=== PATIENT | female | born 1985 | race Caucasian/White ===

== ENCOUNTER 2016-06-24 21:06 | Outpatient (CLI) | payer OTHER ==
[~2016-06-24] VITALS: Ht 160 cm; Wt 91.1 kg
[~2016-06-24 21:06] MED LIST: NITR-58 PO; PREN1TAB62 PO
[2016-06-24 21:20] VITALS: Ht 160 cm; Wt 91.1 kg
[2016-06-24] MEDS ORDERED: LACTATED RINGER'S 1,000 ML IV SCH (21:37)
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
--- NOTE | 2016-06-24 22:00 | PN ---
Date/Time of Note Date/Time of Note DATE: 06/24/16 TIME: 21:55 OB Subjective Subjective Subjective 30 yo @ 33 wks 2 days w twin gestation, presents w ctx since yesterday every 20 min.No VB, no LOF, good FM x 2 patient has a headache and had elevated BP prior to but no elevated BP today OB Objective Objective Objective Abdomen- gravid, n/t FHT- Cat I x 2 Magdalena- irreg ctx Abdomen: WNL Varibility: Moderate Intensity: Mild OB Assessment/Plan Other Assessment: 30 yo P 3 @ 33wk2 days w twin gestation; r/o PTL - will order sono to check cervical length - vaginal exam - IV hydration -tylenol for headache - if ctx stop and cervix not dilated, consider d/c home. BRANDY IRIZARRY MD Jun 24, 2016 22:00
[2016-06-24] MEDS ORDERED: TERBUTALINE 1 MG/ML INJ SC ONE (23:30)
--- NOTE | 2016-06-25 00:06 | RADRPT ---
PROCEDURE: Limited OB ultrasound CLINICAL INDICATION: labor TECHNIQUE: Limited sonographic evaluation of the gravid uterus was performed to assess the cervica l length COMPARISON: 05/24/2016. FINDINGS: Twin live is present. Twin A heart rate is 132 beats per minute with a breech presentatio n to the maternal left. Twin B heart rate is 161 beats per minute with cephalic presentation to the maternal right. Cervix is 4.8 cm in length and a closed. IMPRESSION: Twin live intrauterine with a cervical length of 4.8 cm. RPTAT: HMVK .Edgar Henry MD, Date Time Electronically viewed and signed by .Edgar Henry MD, on 06/25/2016 00:05 .K/
[2016-06-25] MEDS ORDERED: DIPHENHYDRAMINE 50 MG INJ IV ONE (01:00)
--- NOTE | 2016-06-25 02:09 | TRIAGE ---
OB Triage Datetime Report Generated by CPN: 06/25/2016 02:08 Datetime: 06/25/2016 01:36 Pain Assessment Pain Scale: 6 Pain Presence: Intermittent Pain Type: Cramping Pain Location: Abdomen Datetime: 06/25/2016 01:30 Labor Evaluation Frequency: x1 Monitor Mode: External Duration (sec)2399: 90 Quality: Mild Resting Tone [place]: Relaxed Heart Rate FHR Baseline Rate: 140 Monitor Mode: External US Variability: Moderate 6-25 bpm Accelerations: 15X15 Decelerations: None Category: Category I Datetime: 06/25/2016 01:16 Stage of : OB Triage Datetime: 06/25/2016 00:39 Monitor Mode: External US Pain Assessment Pain Scale: 6 Pain Presence: Intermittent Pain Type: Cramping Pain Location: Abdomen Pain Assessment Comments: Pt states her pain is the same and she still feels UC's every 20 minutes . Datetime: 06/25/2016 00:30 Labor Evaluation Frequency: Irregular Monitor Mode: External Quality: Mild Resting Tone [place]: Relaxed Heart Rate FHR Baseline Rate: 140 Monitor Mode: External US Variability: Moderate 6-25 bpm Accelerations: 15X15 Decelerations: None Category: Category I Datetime: 06/24/2016 23:26 Labor Evaluation Frequency: IRREGULAR Monitor Mode: External Duration (sec)2399: 60 Quality: Mild Pattern: Normal: <= 5 Contractions in 10 Minutes Resting Tone [place]: Relaxed Heart Rate FHR Baseline Rate: 145 Monitor Mode: External US FHR Baseline Changes: No Baseline Change Variability: Moderate 6-25 bpm Accelerations: 15X15 Decelerations: None Category: Category I Datetime: 06/24/2016 23:16 Pain Assessment Pain Scale: 6 Pain Presence: Intermittent Pain Type: Cramping Pain Location: Abdomen Datetime: 06/24/2016 23:10 Pain Assessment Pain Scale: 5 Pain Presence: Constant Pain Type: Ache Pain Location: Head Datetime: 06/24/2016 22:30 Labor Evaluation Frequency: IRREGULAR Monitor Mode: External Duration (sec)2399: 30-80 Quality: Mild Pattern: Normal: <= 5 Contractions in 10 Minutes Resting Tone [place]: Relaxed Heart Rate FHR Baseline Rate: 150 Monitor Mode: External US FHR Baseline Changes: No Baseline Change Variability: Moderate 6-25 bpm Accelerations: 15X15 Decelerations: None Category: Category I Datetime: 06/24/2016 21:57 Vaginal Exam Dilatation (cms): 1.0 Effacement (%): 30 Station: -3 Exam By: Francis PUENTE RN Vaginal Bleeding: None Cervix, Consistency: Firm Cervix, Position: Posterior Datetime: 06/24/2016 21:30 Labor Evaluation Frequency: x1 Monitor Mode: External Duration (sec)2399: 100 Pattern: Normal: <= 5 Contractions in 10 Minutes Resting Tone [place]: Relaxed Heart Rate FHR Baseline Rate: 145 Monitor Mode: External US Variability: Moderate 6-25 bpm Accelerations: 15X15 Decelerations: None Category: Category I Datetime: 06/24/2016 21:20 Pain Assessment Pain Scale: 4 Pain Presence: Intermittent Pain Type: Cramping Pain Location: Abdomen Datetime: 06/24/2016 21:16 Stage of : OB Triage Assessment Type: Triage Time of Arrival: 06/24/2016 21:04 EGA: 33.2 Arrived By: Ambulatory Arrived From: Home Chief Complaint: Contractions Movement: Present Contractions: Occasional Time Contractions Began: 06/23/2016 03:00 Contractions: Every 20 minutes Rupture of Membranes: Denies Vaginal Bleeding: None Vaginal Discharge: Denies Recent Sexual Intercouse: Denies Abdominal Trauma: Not Applicable Patient Complaints: Contractions; Other Additional Patient Complaints: Right sided headache and ear pain Initial Plan: CEFM Maternal Assessment Level of Consciousness: Fully Conscious DTR's/Clonus: DTRs 2+; No Clonus Headache: Temporal (Annotations: right side and ear) Blurred Vision: No Respiratory Effort: Unlabored; Regular Rhythm; Equal Expansion Breath Sounds, Left: Clear and Equal Breath Sounds, Right: Clear and Equal Nausea/Vomiting: Denies RUQ Epigastric Pain: Denies Lower Extremities Edema: None Degree: None Upper Extremities Edema: None Degree: None Facial Edema: None Temperature Route: Oral Fall Risk Assessment History of Falling: (0) No Secondary Diagnosis: (0) No Ambulatory Aid: (0) Bedrest/Nurse Assist IV Therapy: (0) No Gait: (0) Normal/Bedrest/Immobile Mental Status: (0) Oriented to Own Ability Fall Score: 0 Fall Risk Score Definition: No Risk: No action required Pain Assessment Pain Scale: 6 Pain Presence: Constant Pain Type: Ache Pain Location: Head; Other (Annotations: Right ear) Datetime: 06/10/2016 18:50 Fall Score: 0 Fall Risk Score Definition: No Risk: No action required Datetime: 06/10/2016 18:49 EGA: 31.2 Datetime: 05/24/2016 20:13 EGA: 28.6 Datetime: 05/24/2016 20:10 Fall Score: 0 Fall Risk Score Definition: No Risk: No action required
[2016-06-26] MEDS ORDERED: IRON18TA PO (03:02)
== END 2016-06-25 01:55 | disposition home or self-care (01) ==
LOC: OBT 21:06 → L-D 21:07 → OBT 06-25 01:55
PROVIDERS: ATTEND Specialist
DX: O62.9 Abnormality of forces of labor, unspecified (principal); R51 Headache; O30.003 Twin pregnancy, unspecified number of placenta and unspecified number of amniotic sacs, third trimester; O60.03 Preterm labor without delivery, third trimester; Z3A.33 33 weeks gestation of pregnancy
CPT/HCPCS: 36415; 76817; 96360; 96361; 96372; J1200; J3105; J7120; Z7500; G0463

== ENCOUNTER 2016-06-25 23:45 | Inpatient (IN) | payer OTHER ==
[~2016-06-25] VITALS: Ht 160 cm; Wt 90.4 kg
[~2016-06-25 23:45] MED LIST changes: -NITR-58 PO
--- NOTE | 2016-06-26 01:20 | RADRPT ---
PROCEDURE: US OB cervical length. CLINICAL INDICATION: labor TECHNIQUE: Multiple sonographic images of the pelvis were obtained. The images were reviewed on a PACS workstation. COMPARISON: No pertinent prior examinations were submitted for comparison. FINDINGS: The cervix is closed with a length of 4.3 cm. IMPRESSION: Cervical length 4.3 cm. RPTAT: HIKT .Deion Brower MD, MD Date Time Electronically viewed and signed by .Deion Brower MD, on 06/26/2016 01:20 .T/
[2016-06-26] MEDS ORDERED: BETAMET NA PHOS/AC(6 MG/ML) 5ML INJ IM ONE (01:30)
[2016-06-26 02:01] LABS: URINE BLOOD (Dip) POC Negative (NEGATIVE)
[2016-06-26 02:30] LABS: ADD UMIC YES; URINE BILIRUBIN (Dip) NEGATIVE (NEGATIVE); URINE BLOOD (Dip) NEGATIVE (NEGATIVE); URINE COLOR LT. YELLOW (YELLOW); URINE GLUCOSE (Dip) NEGATIVE (NEGATIVE); URINE KETONES (Dip) NEGATIVE (NEGATIVE); URINE LEUKOCYTE ESTERASE (Dip) 1+ (NEGATIVE); URINE NITRITE (Dip) NEGATIVE (NEGATIVE); URINE TOTAL PROTEIN (Dip) NEGATIVE (NEGATIVE); URINE UROBILINOGEN (Dip) 0.2 E.U./dL (0.1-1.0)
[2016-06-26 02:59] VITALS: BP 111/71; PULSE 97; RESP 18; Ht 160 cm; Wt 90.4 kg
[2016-06-26] MEDS ORDERED: IRON18TA PO (03:02)
[2016-06-26 03:10] LABS: BACTERIA,URINE MODERATE; SQUAMOUS EPITHELIAL CELL,UR OCCASIONAL; URINE RBCS 0-2 /HPF (0)
[2016-06-26] MEDS ORDERED: AMPICILLIN 2 GM/NS (PMX) 100 ML IV ONE (03:30)
[2016-06-26] MEDS ORDERED: NIFEdipine 10 MG CAP PO SCH (03:30)
[2016-06-26] MEDS: NIFEdipine 10 MG CAP PO SCH ×3 (04:00→15:30)
[2016-06-26] MEDS: LACTATED RINGER'S 1,000 ML IV SCH ×3 (04:42→22:56)
--- NOTE | 2016-06-26 06:10 | TRIAGE ---
OB Triage Datetime Report Generated by CPN: 06/26/2016 06:10 Datetime: 06/26/2016 05:55 Labor Evaluation Frequency: 4-8 Monitor Mode: External Duration (sec)2399: 40-60 Quality: Mild Pattern: Normal: <= 5 Contractions in 10 Minutes Resting Tone Aneta: Relaxed Heart Rate FHR Baseline Rate: 140 Monitor Mode: External US FHR Baseline Changes: No Baseline Change Variability: Moderate 6-25 bpm Accelerations: 15X15 Decelerations: None Category: Category I Datetime: 06/26/2016 05:00 Labor Evaluation Frequency: 4-8 Monitor Mode: External Duration (sec)2399: 40-60 Quality: Mild Pattern: Normal: <= 5 Contractions in 10 Minutes Resting Tone Aneta: Relaxed Heart Rate FHR Baseline Rate: 140 Monitor Mode: External US FHR Baseline Changes: No Baseline Change Variability: Moderate 6-25 bpm Accelerations: 15X15 Decelerations: None Category: Category I Datetime: 06/26/2016 04:15 Assessment Type: Admission Assessment Vaginal Bleeding: None Maternal Assessment Level of Consciousness: Fully Conscious DTR's/Clonus: DTRs 2+; No Clonus Headache: Denies Blurred Vision: No Respiratory Effort: Unlabored; Regular Rhythm; Equal Expansion Breath Sounds, Left: Clear and Equal Breath Sounds, Right: Clear and Equal Nausea/Vomiting: Denies RUQ Epigastric Pain: Denies Facial Edema: None Fall Risk Assessment History of Falling: (0) No Secondary Diagnosis: (0) No Ambulatory Aid: (0) Bedrest/Nurse Assist IV Therapy: (20) Yes Gait: (0) Normal/Bedrest/Immobile Mental Status: (0) Oriented to Own Ability Fall Score: 20 Fall Risk Score Definition: No Risk: No action required Pain Assessment Pain Scale: 4 Pain Presence: Intermittent Pain Type: Contraction Pain Location: Abdomen Pain Goal: 6 Datetime: 06/26/2016 04:00 Labor Evaluation Frequency: IRREGULAR Monitor Mode: External Duration (sec)2399: 40-60 Quality: Mild Pattern: Normal: <= 5 Contractions in 10 Minutes Resting Tone [place]eta: Relaxed Heart Rate FHR Baseline Rate: 140 Monitor Mode: External US Variability: Moderate 6-25 bpm Accelerations: 15X15 Decelerations: None Category: Category I Datetime: 06/26/2016 03:30 Labor Evaluation Frequency: x7 Monitor Mode: External Duration (sec)2399: 40-90 Quality: Mild Pattern: Normal: <= 5 Contractions in 10 Minutes Resting Tone Aneta: Relaxed Heart Rate FHR Baseline Rate: 145 Monitor Mode: External US Variability: Moderate 6-25 bpm Accelerations: 15X15 Decelerations: None Category: Category I Datetime: 06/26/2016 02:30 Labor Evaluation Frequency: x7 Monitor Mode: External Duration (sec)2399: 40-100 Quality: Mild Pattern: Normal: <= 5 Contractions in 10 Minutes Resting Tone Aneta: Relaxed Heart Rate FHR Baseline Rate: 145 Monitor Mode: External US Variability: Moderate 6-25 bpm Accelerations: 15X15 Decelerations: None Category: Category I Datetime: 06/26/2016 01:30 Labor Evaluation Frequency: x5 Monitor Mode: External Duration (sec)2399: 40-60 Quality: Mild Pattern: Normal: <= 5 Contractions in 10 Minutes Resting Tone Aneta: Relaxed Heart Rate FHR Baseline Rate: 145 Monitor Mode: External US Variability: Moderate 6-25 bpm Accelerations: 15X15 Decelerations: None Category: Category I Datetime: 06/26/2016 00:30 Labor Evaluation Frequency: IRREGULAR Monitor Mode: External Duration (sec)2399: 40 Quality: Mild Pattern: Normal: <= 5 Contractions in 10 Minutes Resting Tone Aneta: Relaxed Contraction Comments: with irritability Heart Rate FHR Baseline Rate: 145 Monitor Mode: External US Variability: Moderate 6-25 bpm Accelerations: 15X15 Decelerations: None Category: Category I Datetime: 06/26/2016 00:10 Time of Arrival: 06/25/2016 23:44 EGA: 33.3 Arrived By: Wheelchair Arrived From: Home Chief Complaint: CONTRACTIONS Movement: Present Contractions: Regular Contractions: Q20MIN Rupture of Membranes: Denies Vaginal Bleeding: None Vaginal Discharge: Denies Recent Sexual Intercouse: Denies Abdominal Trauma: Not Applicable Patient Complaints: Contractions Initial Plan: CEFM, CVL, UA, PO HYDRATION Datetime: 06/26/2016 00:01 Pain Assessment Pain Scale: 6 Pain Presence: Intermittent Pain Type: Cramping Pain Location: Abdomen Datetime: 06/25/2016 23:57 Assessment Type: Triage Maternal Assessment Level of Consciousness: Fully Conscious DTR's/Clonus: DTRs 2+; No Clonus Headache: Denies Blurred Vision: No Respiratory Effort: Unlabored; Regular Rhythm; Equal Expansion Breath Sounds, Left: Clear and Equal Breath Sounds, Right: Clear and Equal Nausea/Vomiting: Denies RUQ Epigastric Pain: Denies Lower Extremities Edema: None Degree: None Upper Extremities Edema: None Degree: None Facial Edema: None Fall Risk Assessment History of Falling: (0) No Secondary Diagnosis: (0) No Ambulatory Aid: (0) Bedrest/Nurse Assist IV Therapy: (0) No Gait: (0) Normal/Bedrest/Immobile Mental Status: (0) Oriented to Own Ability Fall Score: 0 Fall Risk Score Definition: No Risk: No action required Datetime: 06/25/2016 23:56 Monitor Mode: External US Datetime: 06/24/2016 21:16 EGA: 33.2 Fall Score: 0 Fall Risk Score Definition: No Risk: No action required Datetime: 06/10/2016 18:50 Fall Score: 0 Fall Risk Score Definition: No Risk: No action required Datetime: 06/10/2016 18:49 EGA: 31.2 Datetime: 05/24/2016 20:13 EGA: 28.6 Datetime: 05/24/2016 20:10 Fall Score: 0 Fall Risk Score Definition: No Risk: No action required
[2016-06-26] MEDS: AMPICILLIN 1 GM/NS (PMX) 50 ML IV SCH ×4 (08:40→23:07)
[2016-06-26 08:50] LABS: BASOPHILS % 0.4 % (0.0-2.0); EOSINOPHILS # 0.2 10^3/ul (0.0-0.5); EOSINOPHILS % 2.3 % (0.0-7.0); HEMOGLOBIN 13.2 g/dl (12.0-16.0); LYMPHOCYTES # 1.5 10^3/ul (0.8-2.9); LYMPHOCYTES % 14.5 % (15.0-51.0); MEAN CORPUSCULAR HGB CONC 33.9 g/dl (32.0-37.0); MEAN CORPUSCULAR VOLUME 91.3 fl (82.0-101.0); MEAN PLATELET VOLUME 8.3 fl (7.4-10.4); MONOCYTE # 0.6 10^3/ul (0.3-0.9); MONOCYTES % 5.5 % (0.0-11.0); NEUTROPHILS % 77.3 % (39.0-77.0); PLATELET COUNT 159 10^3/UL (140-440); RED BLOOD COUNT 4.27 10^6/ul (4.20-5.40); UNCORRECTED WBC 10.4 10^3/ul (4.8-10.8); WHITE BLOOD COUNT 10.4 10^3/ul (4.8-10.8)
[2016-06-26 08:54] LABS: ALBUMIN 3.1 g/dl (3.3-4.9); POTASSIUM 3.7 mmol/L (3.5-5.1)
[2016-06-26 08:56] LABS: BILIRUBIN,INDIRECT 0.1 mg/dl (0-1.1); BILIRUBIN,TOTAL 0.1 mg/dl (0.2-1.3); CREATININE 0.43 mg/dl (0.44-1.00); PROTIME 13.2 Sec (12.2-14.2)
[2016-06-26 08:57] LABS: CONDITION 1; PARTIAL THROMBOPLASTIN TIME 26.3 Sec (25.0-35.0); TOTAL PROTEIN 6.2 g/dl (6.1-8.1)
[2016-06-26 08:58] LABS: CALCIUM 8.4 mg/dl (8.4-10.2)
--- NOTE | 2016-06-26 09:22 | RADRPT ---
PROCEDURE: Limited OB ultrasound CLINICAL INDICATION: labor. TECHNIQUE: Sonographic evaluation to assess the cervical length was performed. Transabdominal alona ging of the gravid uterus was performed. COMPARISON: OB ultrasound for cervical length performed earlier on the same date FINDINGS: Twin A: The heart rate is 132 bpm. position is cephalic. The placenta is posterior. Twin B: The heart rate is 134 bpm. position is breech. The placenta is posterior. The cervix is closed with a length of 3.8 cm. IMPRESSION: The cervix is closed with a length of 3.8 cm. The cervical length previously measured 4.3 cm. RPTAT: HH .Katiuska Barton MD, MD Date Time Electronically viewed and signed by .Katiuska Barton MD, on 06/26/2016 09:21 .G/
[2016-06-26] MEDS: FERROUS GLUCONATE (EC) 325 MG TAB PO SCH (10:00)
[2016-06-26] MEDS: MULTIVIT/MIN/FOLATE/IRON/PREN TAB PO SCH (10:22)
[2016-06-26] MEDS ORDERED: FERROUS FUMARATE (SR) TAB PO SCH (11:00)
[2016-06-26] MEDS ORDERED: NIFEdipine (XL) 30 MG TAB PO SCH (23:08)
--- NOTE | 2016-06-26 23:17 | HP ---
Date/Time of Note Date/Time of Note DATE: 06/26/16 TIME: 23:10 OB - History Hx of Present Free Text/Dictation c/o UCs Estimated Due Date: Aug 10, 2016 : 4 Para: 3 Care: Good Care Ultrasounds: Normal mid trimester US Obstetrical Complications: Other (Twins Di-Di) Medical Complications: None Past Family/Social History * Past Medical, Surgical, Family and Obstetric Histories reviewed from chart. OB Admission Exam Vital Signs Vital Signs Vital Signs Date Time Temp Pulse Resp B/P Pulse Ox O2 Delivery O2 Flow Rate FiO2 06/26/16 02:59 98.0 97 18 111/71 Room Air Physical Exam HEENT: WNL Heart: Rhythm Normal Lungs: Clear, Equal Abdomen: WNL Extremities: Normal Reflexes: Normal Cervical Dilatation: None Effacement: 0% Station: -3 Membranes: Intact Accelerations: Accelerations Present Last 72 hours Lab Results CBC & BMP 06/26/16 04:15 Liver Function Test 06/26/16 04:15 Alanine Aminotransferase (ALT/SGPT) 23 Albumin 3.1 L Alkaline Phosphatase 141 H Aspartate Amino Transf (AST/SGOT) 21 Direct Bilirubin 0.00 Total Protein 6.2 OB Assessment/Plan Reason for admission: labor, other (Twins Di - Di) Other Assessment: IUP at 33.4 weeks with Twins was admitted for observation because she c/o UCs. FFN was neg and cervix has remained closed despite frequent contractions. patient reports her UCs were 8 ot of 10 today am and at this the contractions are 5 out 10 patient refusing tocolysis. the risks of prematurity d/w pt. patient agreed to Procardia Other plan: obtain perinatology and neonatology consultations Steroids Ampicillin Procardia Xl CANDICE GUTIERREZ MD Jun 26, 2016 23:16
[2016-06-27] MEDS: AMPICILLIN 1 GM/NS (PMX) 50 ML IV SCH ×3 (02:10→08:22)
[2016-06-27] MEDS ORDERED: BETAMET NA PHOS/AC(6 MG/ML) 5ML INJ IM ONE (04:15)
[2016-06-27] MEDS: LACTATED RINGER'S 1,000 ML IV SCH ×4 (07:30→21:18)
[2016-06-27] MEDS: MULTIVIT/MIN/FOLATE/IRON/PREN TAB PO SCH (09:12)
[2016-06-27] MEDS: FERROUS GLUCONATE (EC) 325 MG TAB PO SCH (09:12)
--- NOTE | 2016-06-27 17:22 | PN ---
Date/Time of Note Date/Time of Note DATE: 06/27/16 TIME: 17:01 OB Subjective Subjective Subjective Denies any contractions. Denies any LOF, vaginal bleeding. reports good movements. OB Objective Objective Objective GA: A&O, NAD Abdomen: Soft, non tender. Fundal height : Consistent with GA Extremities: no calf tenderness, no click, no edema CL: 3. 8 cm NST: Cat 1 Occasional rare contractions seen. OB Assessment/Plan Other Assessment: IUP at 33 weeks and 5 /7 Admitted for symptomatic contractions. Cervix long Contractions resolved with PO Nifedipine. Patient has been currently asymptomatic Will Stop ampicillin Expectanet management Consider DC home tomorrow with Nifedipine if remain stable and asymptomatic JOE ESTRADA MD Jun 27, 2016 17:18
[2016-06-27] MEDS: NIFEdipine 10 MG CAP PO SCH (18:09)
[2016-06-28] MEDS: LACTATED RINGER'S 1,000 ML IV SCH (00:04)
[2016-06-28] MEDS: NIFEdipine 10 MG CAP PO SCH ×2 (00:04→05:51)
--- NOTE | 2016-06-28 11:30 | DS ---
DATE OF ADMISSION: 06/26/2016 DATE OF DISCHARGE: 06/28/2016 ADMISSION DIAGNOSIS: at 33 weeks with twin gestation, labor. DISCHARGE DIAGNOSIS: at 33 weeks and 4 days; labor, resolved. HOSPITAL COURSE: The patient was admitted and received steroids. She was treated with Procardia, w hich she initially refused. She was seen by perinatologist and nurse extern. She then agreed to r eceive the Procardia. She stopped theodore and her cervix remained closed and her Fibronect in was negative. She denies loss of fluid per vagina. She denies vaginal bleeding. She denies con tractions at this time. She reports good movement on both babies. DISCHARGE DIET: Regular. CONDITION: Satisfactory. ACTIVITY: pelvic rest. FOLLOWUP: Follow up with Dr. Morris in one day. labor precautions and kick counts discussed with patient. MEDICATIONS: vitamins and iron. Dictated By: CANDICE REINA/ESTRELLITA Conf#: [id number] DID#: [id number]
== END 2016-06-28 08:41 | disposition home or self-care (01) | DRG 778 ==
LOC: OBT 23:45 → L-D 23:45 → OBT 06-26 02:23 → L-D 06-26 02:23 → OBG 06-26 07:06
PROVIDERS: ADMIT Specialist; ATTEND Specialist
DX: O60.03 Preterm labor without delivery, third trimester (principal)
CPT/HCPCS: 76817; 80053; 81001; 81003; 85025; 85610; 85730; 86850; 86870; 86900; 86901; 87081; 87086; G0463; J0290; J0702; J7120

== ENCOUNTER 2016-07-03 19:32 | Outpatient (CLI) | payer OTHER ==
[~2016-07-03] VITALS: Ht 160 cm; Wt 91.1 kg
[~2016-07-03 19:32] MED LIST changes: +IRON18TA PO
[2016-07-03 19:42] VITALS: Ht 160 cm; Wt 91.1 kg
[2016-07-03 19:44] VITALS: BP 106/70; PULSE 99; RESP 18
[2016-07-03] MEDS ORDERED: NIFE60TA7 PO (19:50)
[2016-07-03 21:30] LABS: ADD UMIC YES; URINE BILIRUBIN (Dip) NEGATIVE (NEGATIVE); URINE BLOOD (Dip) NEGATIVE (NEGATIVE); URINE COLOR LT. YELLOW (YELLOW); URINE GLUCOSE (Dip) NEGATIVE (NEGATIVE); URINE KETONES (Dip) NEGATIVE (NEGATIVE); URINE LEUKOCYTE ESTERASE (Dip) 1+ (NEGATIVE); URINE NITRITE (Dip) NEGATIVE (NEGATIVE); URINE TOTAL PROTEIN (Dip) NEGATIVE (NEGATIVE); URINE UROBILINOGEN (Dip) 0.2 E.U./dL (0.1-1.0)
[2016-07-03 21:32] LABS: BASOPHILS % 0.3 % (0.0-2.0); EOSINOPHILS # 0.2 10^3/ul (0.0-0.5); HEMOGLOBIN 13.6 g/dl (12.0-16.0); LYMPHOCYTES # 1.5 10^3/ul (0.8-2.9); LYMPHOCYTES % 15.5 % (15.0-51.0); MEAN CORPUSCULAR HEMOGLOBIN 31.3 pg (29.0-33.0); MEAN CORPUSCULAR HGB CONC 34.9 g/dl (32.0-37.0); MEAN CORPUSCULAR VOLUME 89.8 fl (82.0-101.0); MEAN PLATELET VOLUME 7.5 fl (7.4-10.4); MONOCYTE # 0.6 10^3/ul (0.3-0.9); MONOCYTES % 6.1 % (0.0-11.0); NEUTROPHIL # 7.1 10^3/ul (1.6-7.5); NEUTROPHILS % 76.1 % (39.0-77.0); PLATELET COUNT 169 10^3/UL (140-440); RED BLOOD COUNT 4.34 10^6/ul (4.20-5.40); RED CELL DISTRIBUTION WIDTH 14.2 % (11.5-14.5); UNCORRECTED WBC 9.4 10^3/ul (4.8-10.8); WHITE BLOOD COUNT 9.4 10^3/ul (4.8-10.8)
--- NOTE | 2016-07-03 21:35 | RADRPT ---
PROCEDURE: Limited OB ultrasound CLINICAL INDICATION: . Evaluate fluid volume. Spontaneous rupture of membranes. TECHNIQUE: Sonographic evaluation to assess the amniotic fluid volume was performed. Transabdomin al imaging of the gravid uterus was performed. COMPARISON: OB ultrasound dated 04/11/2015 FINDINGS: Twin A: Breech presentation, normal cardiac motion seen, posterior placenta grade 2, maximum fluid pocket of 3.2 cm. Twin B: Cephalic presentation, normal cardiac motion is seen, posterior placenta grade II, maximum fluid pocket of 3.3 cm. IMPRESSION: 1. Normal amniotic fluid volume. 2. Twin viable intrauterine . RPTAT: PP .Abdiel Lora MD, MD Date Time Electronically viewed and signed by .Abdiel Lora MD, on 07/03/2016 21:34 .B/
[2016-07-03 21:38] LABS: CONDITION 1
[2016-07-03 21:41] LABS: BACTERIA,URINE MANY; SQUAMOUS EPITHELIAL CELL,UR MODERATE; URINE RBCS 0-2 /HPF (0)
--- NOTE | 2016-07-03 22:39 | TRIAGE ---
OB Triage Datetime Report Generated by CPN: 07/03/2016 22:38 Datetime: 07/03/2016 22:00 Stage of : OB Triage Labor Evaluation Frequency: 6-12min Monitor Mode: External Duration (sec)2399: 40-60 Quality: Mild Pattern: Normal: <= 5 Contractions in 10 Minutes Resting [place]: Relaxed Heart Rate FHR Baseline Rate: 135 Monitor Mode: External US FHR Baseline Changes: No Baseline Change Variability: Moderate 6-25 bpm Accelerations: 15X15 Decelerations: None Category: Category I Datetime: 07/03/2016 21:01 Monitor Mode: External Quality: Mild Pattern: Normal: <= 5 Contractions in 10 Minutes [place]ing [place]: Relaxed Heart Rate FHR Baseline Rate: 130 Monitor Mode: External US FHR Baseline Changes: No Baseline Change Variability: Moderate 6-25 bpm Accelerations: 15X15 Decelerations: None Category: Category I Vaginal Exam Dilatation (cms): 0.0 Effacement (%): 0 Station: -3 Exam By: E Ciro Amniotic Fluid Amount: None Vaginal Bleeding: None Pool: Negative Nitrazine: Negative Cervix, Consistency: Moderate Cervix, Position: Posterior Datetime: 07/03/2016 20:25 Stage of : OB Triage Labor Evaluation Frequency: 5-10min Monitor Mode: External Duration (sec)2399: 50-80 Quality: Mild Pattern: Normal: <= 5 Contractions in 10 Minutes [place]ing [place]: Relaxed Heart Rate FHR Baseline Rate: 135 Monitor Mode: External US FHR Baseline Changes: No Baseline Change Variability: Moderate 6-25 bpm Accelerations: 15X15 Decelerations: None Category: Category I Pain Assessment Pain Scale: 4 Pain Presence: Intermittent Pain Type: Cramping Pain Location: Abdomen Pain Assessment Comments: Datetime: 07/03/2016 19:52 Time of Arrival: 07/03/2016 19:27 EGA: 34.4 Arrived By: Ambulatory Arrived From: Home Chief Complaint: w/ twin gestation w/ c/o leaking sm amt fluid x2 since 1700 Movement: Present Contractions: Occasional Rupture of Membranes: Unsure Vaginal Discharge: Present Recent Sexual Intercouse: Denies Abdominal Trauma: Not Applicable Patient Complaints: Cramping Initial Plan: EFM Datetime: 07/03/2016 19:41 Maternal Assessment Level of Consciousness: Fully Conscious Headache: Denies Blurred Vision: No Nausea/Vomiting: Denies RUQ Epigastric Pain: Denies Facial Edema: None Labor Evaluation Frequency: placed Monitor Mode: External [place]: Relaxed Monitor Mode: External US Comments: FHT 150 Pain Assessment Pain Scale: 5 Pain Presence: Intermittent Pain Type: Cramping Pain Location: Abdomen Datetime: 06/28/2016 08:00 Assessment Type: Ongoing Assessment Maternal Assessment Level of Consciousness: Fully Conscious DTR's/Clonus: DTRs 2+; No Clonus Headache: Denies Blurred Vision: No Respiratory Effort: Unlabored; Regular Rhythm; Equal Expansion Breath Sounds, Left: Clear and Equal Breath Sounds, Right: Clear and Equal Nausea/Vomiting: Denies RUQ Epigastric Pain: Denies Facial Edema: None Fall Risk Assessment History of Falling: (0) No Secondary Diagnosis: (0) No Ambulatory Aid: (0) Bedrest/Nurse Assist IV Therapy: (0) No Gait: (0) Normal/Bedrest/Immobile Mental Status: (0) Oriented to Own Ability Fall Score: 0 Fall Risk Score Definition: No Risk: No action required Labor Evaluation Frequency: 0 Monitor Mode: External Duration (sec)2399: 0 Pattern: Normal: <= 5 Contractions in 10 Minutes Contraction Comments: DENIES ANY UC'S. ABDOMEN SOFT TO PALPATION Heart Rate FHR Baseline Rate: 145 FHR Baseline Changes: No Baseline Change Variability: Moderate 6-25 bpm Accelerations: 15X15 Decelerations: None Category: Category I Comments: IV DC'D TO [facility]. BANDAIDE APPLIED, BLEEDING STOPPED. Datetime: 06/28/2016 06:46 Labor Evaluation Frequency: x1 Monitor Mode: External Duration (sec)2399: 110 Quality: Mild [place]: Relaxed Contraction Comments: pt without complaint of uc pain Heart Rate FHR Baseline Rate: 140 Monitor Mode: External US Variability: Moderate 6-25 bpm Accelerations: 10X10 Decelerations: None Category: Category I Datetime: 06/28/2016 06:00 Labor Evaluation Frequency: none Monitor Mode: External [place]: Relaxed Heart Rate FHR Baseline Rate: 140 Monitor Mode: External US Variability: Moderate 6-25 bpm Accelerations: 15X15 Decelerations: None Category: Category I Datetime: 06/28/2016 05:00 Labor Evaluation Frequency: x2 Monitor Mode: External Duration (sec)2399: 40-100 Quality: Mild [place]: Relaxed Heart Rate FHR Baseline Rate: 140 Monitor Mode: External US Variability: Moderate 6-25 bpm Accelerations: 15X15 Decelerations: None Category: Category I Datetime: 06/28/2016 04:00 Labor Evaluation Frequency: 130 Monitor Mode: External [place]: Relaxed Heart Rate FHR Baseline Rate: 140 Monitor Mode: External US Variability: Moderate 6-25 bpm Accelerations: 15X15 Decelerations: Variable Category: Category II Datetime: 06/28/2016 02:53 Labor Evaluation Frequency: x2 Monitor Mode: External Duration (sec)2399: 40-110 [place]: Relaxed Contraction Comments: pt without complaint of uc pain Heart Rate FHR Baseline Rate: 140 Monitor Mode: External US Variability: Moderate 6-25 bpm Accelerations: 15X15 Decelerations: None Category: Category I Datetime: 06/28/2016 02:00 Labor Evaluation Frequency: x3 Monitor Mode: External Duration (sec)2399: 50-120 Quality: Mild [place]: Relaxed Contraction Comments: pt without complaint of uc pain Heart Rate FHR Baseline Rate: 140 Monitor Mode: External US Variability: Moderate 6-25 bpm Accelerations: 15X15 Decelerations: None Category: Category I Datetime: 06/28/2016 01:00 Labor Evaluation Frequency: x4 Monitor Mode: External Duration (sec)2399: 40-90 Quality: Mild [place]: Relaxed Contraction Comments: pt without complaint of uc pain Heart Rate FHR Baseline Rate: 140 Monitor Mode: External US FHR Baseline Changes: No Baseline Change Variability: Moderate 6-25 bpm Accelerations: 15X15 Decelerations: None Category: Category I Datetime: 06/28/2016 00:00 Labor Evaluation Frequency: x4 Monitor Mode: External Duration (sec)2399: 40-110 Quality: Mild [place]: Relaxed Contraction Comments: pt without complaint of uc pain Heart Rate FHR Baseline Rate: 140 Monitor Mode: External US FHR Baseline Changes: No Baseline Change Variability: Moderate 6-25 bpm Accelerations: 15X15 Decelerations: None Category: Category I Datetime: 06/27/2016 23:00 Labor Evaluation Frequency: x1 Monitor Mode: External Duration (sec)2399: 40 Quality: Mild [place]: Relaxed Contraction Comments: pt without complaint of uc pain Heart Rate FHR Baseline Rate: 140 Monitor Mode: External US Variability: Moderate 6-25 bpm Accelerations: 15X15 Decelerations: None Category: Category I Datetime: 06/27/2016 21:00 Labor Evaluation Frequency: none Monitor Mode: External [place]: Relaxed Heart Rate FHR Baseline Rate: 140 Monitor Mode: External US Variability: Moderate 6-25 bpm Accelerations: 15X15 Decelerations: None Category: Category I Datetime: 06/27/2016 20:03 Assessment Type: Ongoing Assessment Maternal Assessment Level of Consciousness: Fully Conscious DTR's/Clonus: DTRs 2+; No Clonus Headache: Denies Blurred Vision: No Respiratory Effort: Unlabored; Regular Rhythm; Equal Expansion Breath Sounds, Left: Clear and Equal Breath Sounds, Right: Clear and Equal Nausea/Vomiting: Denies RUQ Epigastric Pain: Denies Lower Extremities Edema: None Degree: None Upper Extremities Edema: None Degree: None Facial Edema: None Fall Risk Assessment History of Falling: (0) No Secondary Diagnosis: (0) No Ambulatory Aid: (0) Bedrest/Nurse Assist IV Therapy: (20) Yes Gait: (0) Normal/Bedrest/Immobile Mental Status: (0) Oriented to Own Ability Fall Score: 20 Fall Risk Score Definition: No Risk: No action required Datetime: 06/27/2016 20:02 Stage of : Antepartum Temperature Route: Oral Datetime: 06/27/2016 20:01 Comments: EFM adjusted Datetime: 06/27/2016 20:00 Labor Evaluation Frequency: x4 Monitor Mode: External Duration (sec)2399: 40-50 Quality: Mild [place]: Relaxed Contraction Comments: pt without complaint of uc pain Heart Rate FHR Baseline Rate: 140 Monitor Mode: External US Variability: Moderate 6-25 bpm Accelerations: 15X15 Decelerations: None Category: Category I Datetime: 06/27/2016 18:00 Labor Evaluation Frequency: NONE Monitor Mode: External Duration (sec)2399: 0 Pattern: Normal: <= 5 Contractions in 10 Minutes Resting [place]: Relaxed Heart Rate FHR Baseline Rate: 140 Monitor Mode: External US FHR Baseline Changes: No Baseline Change Variability: Moderate 6-25 bpm Accelerations: 15X15 Decelerations: None Category: Category I Datetime: 06/27/2016 17:00 Labor Evaluation Frequency: IRRIT Monitor Mode: External Pattern: Normal: <= 5 Contractions in 10 Minutes Resting [place]: Relaxed Heart Rate FHR Baseline Rate: 130 Monitor Mode: External US FHR Baseline Changes: No Baseline Change Variability: Moderate 6-25 bpm Accelerations: 15X15 Decelerations: None Category: Category I Datetime: 06/27/2016 16:00 Labor Evaluation Frequency: IRRIT Monitor Mode: External Duration (sec)2399: 20 TO 30 SEC Quality: Mild Pattern: Normal: <= 5 Contractions in 10 Minutes Resting [place]: Relaxed Heart Rate FHR Baseline Rate: 140 Monitor Mode: External US FHR Baseline Changes: No Baseline Change Variability: Moderate 6-25 bpm Accelerations: 15X15 Decelerations: None Category: Category I Datetime: 06/27/2016 15:00 Labor Evaluation Frequency: NONE Monitor Mode: External Duration (sec)2399: 0 Pattern: Normal: <= 5 Contractions in 10 Minutes Resting [place]: Relaxed Heart Rate FHR Baseline Rate: 130 Monitor Mode: External US FHR Baseline Changes: No Baseline Change Variability: Moderate 6-25 bpm Accelerations: 15X15 Decelerations: None Category: Category I Datetime: 06/27/2016 14:00 Labor Evaluation Frequency: IRRIT Monitor Mode: External Duration (sec)2399: 10 TO 20 SEC Pattern: Normal: <= 5 Contractions in 10 Minutes Resting [place]: Relaxed Heart Rate FHR Baseline Rate: 130 Monitor Mode: External US FHR Baseline Changes: No Baseline Change Variability: Moderate 6-25 bpm Accelerations: 15X15 Decelerations: None Category: Category I Datetime: 06/27/2016 13:00 Labor Evaluation Frequency: X2/HR Monitor Mode: External Duration (sec)2399: 50 AND 60 SEC Quality: Mild Pattern: Normal: <= 5 Contractions in 10 Minutes [place]ing [place]: Relaxed Heart Rate FHR Baseline Rate: 140 Monitor Mode: External US FHR Baseline Changes: No Baseline Change Variability: Moderate 6-25 bpm Accelerations: 15X15 Decelerations: None Category: Category I Datetime: 06/27/2016 12:00 Temperature Route: Oral Labor Evaluation Frequency: NONE Monitor Mode: External Duration (sec)2399: 0 Pattern: Normal: <= 5 Contractions in 10 Minutes [place]ing [place]: Relaxed Heart Rate FHR Baseline Rate: 140 Monitor Mode: External US FHR Baseline Changes: Return to Previous Baseline Variability: Moderate 6-25 bpm Accelerations: 15X15 Decelerations: None Category: Category I Datetime: 06/27/2016 11:00 Labor Evaluation Frequency: X1/HR Monitor Mode: External Duration (sec)2399: 50 Quality: Mild Pattern: Normal: <= 5 Contractions in 10 Minutes [place]ing [place]: Relaxed Heart Rate FHR Baseline Rate: 140 Monitor Mode: External US FHR Baseline Changes: No Baseline Change Variability: Moderate 6-25 bpm Accelerations: 15X15 Decelerations: None Category: Category I Datetime: 06/27/2016 10:00 Labor Evaluation Frequency: IRRIT Monitor Mode: External Pattern: Normal: <= 5 Contractions in 10 Minutes Resting [place]: Relaxed Heart Rate FHR Baseline Rate: 140 Monitor Mode: External US FHR Baseline Changes: No Baseline Change Variability: Moderate 6-25 bpm Accelerations: 15X15 Decelerations: None Category: Category I Datetime: 06/27/2016 09:00 Labor Evaluation Frequency: X2/HR Monitor Mode: External Duration (sec)2399: 90 _ 50 SEC Quality: Mild Pattern: Normal: <= 5 Contractions in 10 Minutes Resting [place]: Relaxed Heart Rate FHR Baseline Rate: 140 FHR Baseline Changes: No Baseline Change Variability: Moderate 6-25 bpm Accelerations: 15X15 Decelerations: None Category: Category I Datetime: 06/27/2016 08:00 Assessment Type: Ongoing Assessment Maternal Assessment Level of Consciousness: Fully Conscious DTR's/Clonus: DTRs 2+; No Clonus Headache: Denies Blurred Vision: No Respiratory Effort: Unlabored; Regular Rhythm; Equal Expansion Breath Sounds, Left: Clear and Equal Breath Sounds, Right: Clear and Equal Nausea/Vomiting: Denies RUQ Epigastric Pain: Denies Lower Extremities Edema: None Degree: None Upper Extremities Edema: None Degree: None Facial Edema: None Temperature Route: Oral Fall Risk Assessment History of Falling: (0) No Secondary Diagnosis: (0) No Ambulatory Aid: (0) Bedrest/Nurse Assist IV Therapy: (0) No Gait: (0) Normal/Bedrest/Immobile Mental Status: (0) Oriented to Own Ability Fall Score: 0 Fall Risk Score Definition: No Risk: No action required Labor Evaluation Frequency: NONE Monitor Mode: External Duration (sec)2399: NONE Pattern: Normal: <= 5 Contractions in 10 Minutes Resting [place]: Relaxed Heart Rate FHR Baseline Rate: 140 Monitor Mode: External US FHR Baseline Changes: No Baseline Change Variability: Moderate 6-25 bpm Accelerations: 15X15 Decelerations: None Category: Category I Datetime: 06/27/2016 06:51 Labor Evaluation Frequency: IRREGULAR Monitor Mode: External Duration (sec)2399: 50-60 Quality: Mild Pattern: Normal: <= 5 Contractions in 10 Minutes [place]ing [place]: Relaxed Contraction Comments: NOTED 1 UC Heart Rate FHR Baseline Rate: 140 Monitor Mode: External US FHR Baseline Changes: No Baseline Change Variability: Moderate 6-25 bpm Accelerations: 15X15 Decelerations: None Category: Category I Datetime: 06/27/2016 06:00 Labor Evaluation Frequency: IRREGULAR Monitor Mode: External Duration (sec)2399: 50-60 Quality: Mild Pattern: Normal: <= 5 Contractions in 10 Minutes [place]ing [place]: Relaxed Contraction Comments: NOTED 1 UC Heart Rate FHR Baseline Rate: 140 Monitor Mode: External US Variability: Minimal - Undetectable to <=5 bpm Accelerations: 15X15 Decelerations: None Category: Category II Datetime: 06/27/2016 05:18 Stage of : Antepartum Temperature Route: Oral Monitor Mode: External US Pain Assessment Pain Scale: 5 Pain Presence: Intermittent Pain Type: Contraction Pain Location: Abdomen Pain Goal: 5 Pain Relief Measures: Comfort Measures Datetime: 06/27/2016 05:12 Monitor Mode: External US Datetime: 06/27/2016 05:00 Labor Evaluation Frequency: IRREGULAR Monitor Mode: External Duration (sec)2399: 50-60 Quality: Mild Pattern: Normal: <= 5 Contractions in 10 Minutes [place]ing [place]: Relaxed Contraction Comments: NOTED 3 UC'S Heart Rate FHR Baseline Rate: 135 Monitor Mode: External US FHR Baseline Changes: No Baseline Change Variability: Moderate 6-25 bpm Accelerations: 15X15 Decelerations: None Category: Category I Datetime: 06/27/2016 04:31 Monitor Mode: External US Datetime: 06/27/2016 04:20 Monitor Mode: External US Datetime: 06/27/2016 04:00 Labor Evaluation Frequency: IRREGULAR Monitor Mode: External Duration (sec)2399: 50-60 Quality: Mild Pattern: Normal: <= 5 Contractions in 10 Minutes [place]ing [place]: Relaxed Contraction Comments: NOTED 3 UC'S Heart Rate FHR Baseline Rate: 135 Monitor Mode: External US FHR Baseline Changes: No Baseline Change Variability: Moderate 6-25 bpm Accelerations: 15X15 Decelerations: None Category: Category I Datetime: 06/27/2016 03:00 Labor Evaluation Frequency: IRREGULAR Monitor Mode: External Duration (sec)2399: 50-60 Quality: Mild Pattern: Normal: <= 5 Contractions in 10 Minutes [place]ing [place]: Relaxed Contraction Comments: 3 UC'S NOTED Heart Rate FHR Baseline Rate: 135 Monitor Mode: External US Variability: Moderate 6-25 bpm Accelerations: 15X15 Decelerations: None Category: Category I Datetime: 06/27/2016 02:00 Monitor Mode: External [place]: Relaxed Contraction Comments: NO UC'S NOTED, PT DENIES FEELING UC'S AT THIS TIME Heart Rate FHR Baseline Rate: 140 Monitor Mode: External US FHR Baseline Changes: No Baseline Change Variability: Minimal - Undetectable to <=5 bpm Accelerations: 15X15 Decelerations: None Category: Category II Datetime: 06/27/2016 01:00 Monitor Mode: External [place]: Relaxed Contraction Comments: NO UC'S NOTED, PT DENIES FEELING UC'S AT THIS TIME Heart Rate FHR Baseline Rate: 140 Monitor Mode: External US FHR Baseline Changes: No Baseline Change Variability: Minimal - Undetectable to <=5 bpm Accelerations: 15X15 Decelerations: Variable Category: Category II Datetime: 06/27/2016 00:03 Stage of : Antepartum Maternal Assessment Level of Consciousness: Fully Conscious DTR's/Clonus: DTRs 2+; No Clonus Headache: Denies Breath Sounds, Left: Clear and Equal Breath Sounds, Right: Clear and Equal Nausea/Vomiting: Denies RUQ Epigastric Pain: Denies Temperature Route: Oral Pain Assessment Pain Scale: 5 Pain Presence: Intermittent Pain Type: Contraction Pain Location: Abdomen Pain Goal: 5 Pain Relief Measures: Comfort Measures Datetime: 06/27/2016 00:00 Monitor Mode: External [place]: Relaxed Contraction Comments: NO UC'S NOTED PT REPORTS FEELING UC'S Heart Rate FHR Baseline Rate: 140 Monitor Mode: External US FHR Baseline Changes: No Baseline Change Variability: Minimal - Undetectable to <=5 bpm Accelerations: 15X15 Decelerations: None Category: Category II Datetime: 06/26/2016 23:00 Monitor Mode: External [place]: Relaxed Heart Rate FHR Baseline Rate: 140 Monitor Mode: External US FHR Baseline Changes: No Baseline Change Variability: Moderate 6-25 bpm Accelerations: 15X15 Decelerations: None Category: Category I Datetime: 06/26/2016 22:54 Vaginal Exam Dilatation (cms): 0.0 Effacement (%): 0 Station: -3 Exam By: DR. YABONITAARPOUR Datetime: 06/26/2016 22:00 Monitor Mode: External [place]: Relaxed Contraction Comments: NO UC'S NOTED, PT REPORTS FEELING UC'S Heart Rate FHR Baseline Rate: 140 Monitor Mode: External US FHR Baseline Changes: No Baseline Change Variability: Moderate 6-25 bpm Accelerations: 15X15 Decelerations: None Category: Category I Datetime: 06/26/2016 21:00 Monitor Mode: External [place]: Relaxed Contraction Comments: NO UC'S NOTED PT REPORTS FEELING UC'S Heart Rate FHR Baseline Rate: 140 Monitor Mode: External US Variability: Moderate 6-25 bpm Accelerations: 15X15 Decelerations: None Category: Category I Datetime: 06/26/2016 20:00 Monitor Mode: External [place]: Relaxed Contraction Comments: NO CONTRACTIONS NTED, PT REPORTS FEELING MILD U/C'S "OCCASIONALLY" Heart Rate FHR Baseline Rate: 145 Monitor Mode: External US Variability: Moderate 6-25 bpm Accelerations: 15X15 Decelerations: None Category: Category I Datetime: 06/26/2016 19:48 Assessment Type: Ongoing Assessment Maternal Assessment Level of Consciousness: Fully Conscious DTR's/Clonus: DTRs 2+; No Clonus Headache: Denies Blurred Vision: No Respiratory Effort: Unlabored; Regular Rhythm; Equal Expansion Breath Sounds, Left: Clear and Equal Breath Sounds, Right: Clear and Equal Nausea/Vomiting: Denies RUQ Epigastric Pain: Denies Lower Extremities Edema: None Degree: None Upper Extremities Edema: None Degree: None Facial Edema: None Fall Risk Assessment History of Falling: (0) No Secondary Diagnosis: (0) No Ambulatory Aid: (0) Bedrest/Nurse Assist IV Therapy: (20) Yes Gait: (0) Normal/Bedrest/Immobile Mental Status: (0) Oriented to Own Ability Fall Score: 20 Fall Risk Score Definition: No Risk: No action required Datetime: 06/26/2016 19:45 Stage of : Antepartum Temperature Route: Oral Pain Assessment Pain Scale: 3 Pain Presence: Intermittent Pain Type: Contraction Pain Location: Abdomen Pain Goal: 5 Pain Relief Measures: Comfort Measures Datetime: 06/26/2016 19:30 Stage of : Antepartum Datetime: 06/26/2016 18:00 Labor Evaluation Frequency: NONE Monitor Mode: External Pattern: Normal: <= 5 Contractions in 10 Minutes Resting [place]: Relaxed Heart Rate FHR Baseline Rate: 140 Monitor Mode: External US FHR Baseline Changes: No Baseline Change Variability: Moderate 6-25 bpm Accelerations: 15X15 Decelerations: None Category: Category I Datetime: 06/26/2016 17:00 Labor Evaluation Frequency: NONE Monitor Mode: External Duration (sec)2399: 0 Pattern: Normal: <= 5 Contractions in 10 Minutes Resting [place]: Relaxed Heart Rate FHR Baseline Rate: 140 Monitor Mode: External US FHR Baseline Changes: No Baseline Change Variability: Moderate 6-25 bpm Accelerations: 15X15 Decelerations: None Category: Category I Datetime: 06/26/2016 16:00 Temperature Route: Oral Labor Evaluation Frequency: X2/HR Monitor Mode: External Duration (sec)2399: 60 SEC Quality: Mild Pattern: Normal: <= 5 Contractions in 10 Minutes Resting [place]: Relaxed Heart Rate FHR Baseline Rate: 140 Monitor Mode: External US FHR Baseline Changes: No Baseline Change Variability: Moderate 6-25 bpm Accelerations: 15X15 Decelerations: None Category: Category I Datetime: 06/26/2016 15:00 Labor Evaluation Frequency: NONE Monitor Mode: External Duration (sec)2399: 0 Pattern: Normal: <= 5 Contractions in 10 Minutes Resting [place]: Relaxed Heart Rate FHR Baseline Rate: 140 Monitor Mode: External US FHR Baseline Changes: No Baseline Change Variability: Moderate 6-25 bpm Accelerations: 15X15 Decelerations: None Category: Category I Datetime: 06/26/2016 14:00 Labor Evaluation Frequency: IRRIT Monitor Mode: External Duration (sec)2399: 20 _ 30 SEC Pattern: Normal: <= 5 Contractions in 10 Minutes Resting [place]: Relaxed Heart Rate FHR Baseline Rate: 140 Monitor Mode: External US FHR Baseline Changes: No Baseline Change Variability: Moderate 6-25 bpm Accelerations: 15X15 Decelerations: None Category: Category I Datetime: 06/26/2016 13:00 Labor Evaluation Frequency: IRRIT Monitor Mode: External Duration (sec)2399: 30 TO 40 SEC Quality: Mild Pattern: Normal: <= 5 Contractions in 10 Minutes Resting [place]: Relaxed Heart Rate FHR Baseline Rate: 140 Monitor Mode: External US FHR Baseline Changes: No Baseline Change Variability: Moderate 6-25 bpm Accelerations: 15X15 Decelerations: None Category: Category I Datetime: 06/26/2016 12:00 Temperature Route: Oral Labor Evaluation Frequency: IRRIT Monitor Mode: External Pattern: Normal: <= 5 Contractions in 10 Minutes Resting [place]: Relaxed Heart Rate FHR Baseline Rate: 140 Monitor Mode: External US FHR Baseline Changes: No Baseline Change Variability: Moderate 6-25 bpm Accelerations: 15X15 Decelerations: None Category: Category I Datetime: 06/26/2016 11:00 Labor Evaluation Frequency: X4/HR Monitor Mode: External Duration (sec)2399: 40 TO 60 SEC Quality: Mild Pattern: Normal: <= 5 Contractions in 10 Minutes Resting [place]: Relaxed Heart Rate FHR Baseline Rate: 130 Monitor Mode: External US FHR Baseline Changes: No Baseline Change Variability: Moderate 6-25 bpm Accelerations: 15X15 Decelerations: None Category: Category I Datetime: 06/26/2016 10:00 Labor Evaluation Frequency: X4/HR+ IRRIT Monitor Mode: External Duration (sec)2399: 50 _ 60 SEC Quality: Moderate Pattern: Normal: <= 5 Contractions in 10 Minutes Resting [place]: Relaxed Heart Rate FHR Baseline Rate: 140 Monitor Mode: External US FHR Baseline Changes: No Baseline Change Variability: Moderate 6-25 bpm Accelerations: 15X15 Decelerations: None Category: Category I Datetime: 06/26/2016 09:00 Labor Evaluation Frequency: X6/HR Monitor Mode: External Duration (sec)2399: 50 _ 60 SEC Quality: Moderate Pattern: Tachysystole: > 5 Contractions in 10 Minutes Resting [place]: Relaxed Heart Rate FHR Baseline Rate: 140 Monitor Mode: External US FHR Baseline Changes: No Baseline Change Variability: Moderate 6-25 bpm Accelerations: 15X15 Decelerations: None Category: Category I Datetime: 06/26/2016 07:34 Stage of : Antepartum Maternal Assessment Level of Consciousness: Fully Conscious DTR's/Clonus: DTRs 2+; No Clonus Headache: Denies Blurred Vision: No Respiratory Effort: Unlabored; Regular Rhythm; Equal Expansion Breath Sounds, Left: Clear and Equal Breath Sounds, Right: Clear and Equal Nausea/Vomiting: Denies RUQ Epigastric Pain: Denies Facial Edema: None Temperature Route: Oral Fall Risk Assessment History of Falling: (0) No Secondary Diagnosis: (0) No Ambulatory Aid: (0) Bedrest/Nurse Assist IV Therapy: (0) No Gait: (0) Normal/Bedrest/Immobile Mental Status: (0) Oriented to Own Ability Fall Score: 0 Fall Risk Score Definition: No Risk: No action required Labor Evaluation Frequency: X8/HR Monitor Mode: External Duration (sec)2399: 60 SEC Quality: Moderate Pattern: Normal: <= 5 Contractions in 10 Minutes Resting Tone [place]: Relaxed Heart Rate FHR Baseline Rate: 140 Monitor Mode: External US FHR Baseline Changes: No Baseline Change Variability: Moderate 6-25 bpm Accelerations: 15X15 Decelerations: None Category: Category I Datetime: 06/26/2016 04:15 Fall Score: 20 Fall Risk Score Definition: No Risk: No action required Datetime: 06/26/2016 00:10 EGA: 33.3 Datetime: 06/25/2016 23:57 Fall Score: 0 Fall Risk Score Definition: No Risk: No action required Datetime: 06/24/2016 21:16 EGA: 33.2 Fall Score: 0 Fall Risk Score Definition: No Risk: No action required Datetime: 06/10/2016 18:50 Fall Score: 0 Fall Risk Score Definition: No Risk: No action required Datetime: 06/10/2016 18:49 EGA: 31.2 Datetime: 05/24/2016 20:13 EGA: 28.6 Datetime: 05/24/2016 20:10 Fall Score: 0 Fall Risk Score Definition: No Risk: No action required
--- NOTE | 2016-07-04 00:07 | HP ---
Date/Time of Note Date/Time of Note DATE: 07/04/16 TIME: 00:01 OB - History Hx of Present Chief Complaint: Leakage of fluid. Estimated Due Date: Aug 10, 2016 : 4 Para: 3 Spontaneous : 0 Therapeutic : 0 Ultrasounds: Normal mid trimester US Obstetrical Complications: Other Medical Complications: None Past Family/Social History * Past Medical, Surgical, Family and Obstetric Histories reviewed from chart. OB Admission Exam Vital Signs Vital Signs Vital Signs Date Time Temp Pulse Resp B/P Pulse Ox O2 Delivery O2 Flow Rate FiO2 07/03/16 19:44 97.4 99 18 106/70 Room Air Physical Exam Abdomen: WNL Effacement: Other Heart Rate: 140's Accelerations: Accelerations Present Decelerations: No Decelerations Varibility: Moderate Last 72 hours Lab Results CBC & BMP 07/03/16 21:15 OB Assessment/Plan Reason for admission: other Other Assessment: Work up revelaed no sign of SROM. Plan: Other Other plan: D/c home. ITALO SETHI MD Jul 04, 2016 00:07
== END 2016-07-03 22:35 | disposition home or self-care (01) ==
LOC: OBT 19:32 → L-D 19:33 → OBT 22:35
PROVIDERS: ATTEND Obstetrics & Gynecology
DX: O26.893 Other specified pregnancy related conditions, third trimester (principal); O30.003 Twin pregnancy, unspecified number of placenta and unspecified number of amniotic sacs, third trimester; Z3A.34 34 weeks gestation of pregnancy
CPT/HCPCS: 76815; 81001; 84112; 85025; Z7500; 81003; G0463

== ENCOUNTER 2016-07-23 16:49 | Inpatient (IN) | payer OTHER ==
[~2016-07-23] VITALS: Ht 160 cm; Wt 95.5 kg
[~2016-07-23 16:49] MED LIST changes: +NIFE60TA7 PO
[2016-07-23 17:26] VITALS: Ht 160 cm; Wt 95.5 kg
[2016-07-23] MEDS ORDERED: CARBOPROST 250 MCG INJ IM PRN (17:30)
[2016-07-23] MEDS ORDERED: OXYTOCIN 30 UNITS/LR 500 ML IV PRN (17:30)
[2016-07-23] MEDS ORDERED: MISOPROSTOL 200 MCG TAB PR PRN ×2 (17:30→21:00)
[2016-07-23] MEDS ORDERED: METHYLERGONOVINE 0.2 MG INJ IM PRN (17:30)
[2016-07-23] MEDS ORDERED: CEFAZOLIN 2 GM/50 ML (PMX) 50 ML IV SCH (17:30)
[2016-07-23 17:36] LABS: BASOPHILS % 0.2 % (0.0-2.0); EOSINOPHILS # 0.1 10^3/ul (0.0-0.5); EOSINOPHILS % 1.3 % (0.0-7.0); HEMATOCRIT 42.2 % (37.0-47.0); HEMOGLOBIN 14.5 g/dl (12.0-16.0); LYMPHOCYTES # 1.5 10^3/ul (0.8-2.9); LYMPHOCYTES % 15.4 % (15.0-51.0); MEAN CORPUSCULAR HEMOGLOBIN 31.4 pg (29.0-33.0); MEAN CORPUSCULAR HGB CONC 34.3 g/dl (32.0-37.0); MEAN CORPUSCULAR VOLUME 91.5 fl (82.0-101.0); MONOCYTE # 0.6 10^3/ul (0.3-0.9); MONOCYTES % 6.3 % (0.0-11.0); NEUTROPHIL # 7.3 10^3/ul (1.6-7.5); NEUTROPHILS % 76.8 % (39.0-77.0); PLATELET COUNT 174 10^3/UL (140-440); RED BLOOD COUNT 4.61 10^6/ul (4.20-5.40); RED CELL DISTRIBUTION WIDTH 13.8 % (11.5-14.5); UNCORRECTED WBC 9.6 10^3/ul (4.8-10.8); WHITE BLOOD COUNT 9.6 10^3/ul (4.8-10.8)
[2016-07-23 17:37] LABS: CONDITION 1
[2016-07-23 17:45] LABS: INR 0.94; PROTIME 12.6 Sec (12.2-14.2)
[2016-07-23 17:46] LABS: PARTIAL THROMBOPLASTIN TIME 24.1 Sec (25.0-35.0)
[2016-07-23] MEDS ORDERED: LACTATED RINGER'S 1,000 ML IV SCH (17:46)
[2016-07-23] MEDS ORDERED: morphine SULFATE/PF (10 MG/10 ML) INJ ONE (20:37)
[2016-07-23] MEDS ORDERED: PHENYLephrine (100 MCG/ML) 5ML SYG ONE ×2 (20:37→20:48)
[2016-07-23] MEDS ORDERED: OXYTOCIN 10 UNIT INJ ONE ×2 (20:37→21:07)
[2016-07-23] MEDS ORDERED: ONDANSETRON 4 MG INJ ONE (20:37)
--- NOTE | 2016-07-23 20:37 | HP ---
Date/Time of Note Date/Time of Note DATE: 07/23/16 TIME: 20:32 OB - History Hx of Present Free Text/Dictation 30 YO with Twins Breech/Breech with IUP at 37.4 weeks here for primary c/ s and BTL Care: Good Care Ultrasounds: Normal mid trimester US Obstetrical Complications: None Medical Complications: None Past Family/Social History * Past Medical, Surgical, Family and Obstetric Histories reviewed from chart. OB Admission Exam Physical Exam HEENT: WNL Heart: Rhythm Normal Lungs: Clear, Equal Abdomen: WNL Extremities: Normal Reflexes: Normal Last 72 hours Lab Results CBC & BMP 07/23/16 17:10 OB Assessment/Plan Reason for admission: section Other Assessment: 30 YO with Twins Breech/Breech with IUP at 37.4 weeks here for primary c/ s and BTL Other plan: c/s and BTL CANDICE GUTIERREZ MD Jul 23, 2016 20:37
[2016-07-23] MEDS: SENNA/DOCUSATE NA (8.6MG/50MG) TAB PO SCH (21:00)
[2016-07-23] MEDS ORDERED: NA PHOSPHATE/BIPHOS 133 ML ENEMA PR PRN (21:00)
[2016-07-23] MEDS ORDERED: LANOLIN 7 GM TUBE TOP PRN (21:00)
[2016-07-23] MEDS ORDERED: OXYCODONE/ACETAMINOPHEN (5/325) TAB PO PRN ×2 (21:00)
[2016-07-23] MEDS ORDERED: DIPHENHYDRAMINE 50 MG INJ IV PRN (21:30)
[2016-07-23] MEDS ORDERED: ONDANSETRON 4 MG INJ IV PRN (21:30)
[2016-07-23] MEDS ORDERED: NALOXONE (0.4 MG/ML) INJ IV PRN (21:30)
[2016-07-23] MEDS ORDERED: morphine 2 MG INJ IV PRN (21:30)
[2016-07-24 01:00] VITALS: BP 121/83; RESP 21
[2016-07-24] MEDS: LACTATED RINGER'S 1,000 ML IV SCH ×4 (02:56→23:40)
[2016-07-24 03:40] VITALS: BP 106/61; RESP 20
--- NOTE | 2016-07-24 04:23 | PREOPHP ---
DATE OF ADMISSION: 07/23/2016 HISTORY OF PRESENT ILLNESS: The patient is a 31-year-old 4, para 3 with twin at 3 7 weeks and 4 days, here for primary low transverse delivery. On her last ultrasound, she had both twins in breech presentation. She also desires permanent sterilization and bilateral tubal ligation. I have discussed with patient the risks, benefits, and indications of procedure includin g but not limited to risk of infection, bleeding, damage to other organs, bowel, bladder, hernia for mation, scar formation, possibility of blood transfusions. She was allowed to ask questions. All h er questions were answered. Informed consent has been obtained. Also, the risk of failure of tubal ligation and possible ectopic or intrauterine in future were discussed with the patient. PAST MEDICAL HISTORY: None. PAST SURGICAL HISTORY: None. ALLERGIES: NO KNOWN DRUG ALLERGIES. MEDICATIONS: 1. vitamins. 2. Iron. REVIEW OF SYSTEMS: Significant as above. PHYSICAL EXAMINATION VITAL SIGNS: Stable. She is afebrile. GENERAL: No acute distress. HEENT: No thyromegaly. HEART: Regular rate and rhythm. LUNGS: Clear to auscultation bilaterally. ABDOMEN: Soft, gravid. EXTREMITIES: No edema. ASSESSMENT: Term , twin , breech, breech, desires permanent sterilization. PLAN: Repeat delivery and tubal ligation. Informed consent obtained. Dictated By: CANDICE REINA/ESTRELLITA Conf#: [id number] DID#: [id number]
--- NOTE | 2016-07-24 05:10 | OPR ---
DATE OF OPERATION: 07/23/2016 PREOPERATIVE DIAGNOSES: 1. Term , twins, breech presentation. 2. Desires permanent sterilization. POSTOPERATIVE DIAGNOSES: 1. Term , twins, breech presentation. 2. Desires permanent sterilization. OPERATION PERFORMED: 1. Primary low transverse delivery. 2. Bilateral salpingectomy. SURGEON: Candice Morris MD TRUCK SERVICE TECHNICIAN: ANESTHESIA: General. COMPLICATIONS: None. CONSENT: Please see preop H and P. DESCRIPTION OF PROCEDURE: The patient was taken to the operating room and general anesthesia was in duced. She was prepped and draped in the usual sterile fashion. A knife was used to make a Pfannen stiel skin incision. The incision was taken down in layers. The fascia was cut, undermined, separa devi from the underlying muscle using sharp and blunt dissection. All bleeders were cauterized. Per itoneum was entered bluntly. Low transverse incision was developed over the uterus and the twin A w as delivered in breech presentation, twin B was found to be T-like transverse lie and was turned to vertex and delivered in vertex presentation. The cords were clamped and cut and handed to awaiting t eam. Placenta was then delivered. Uterus was exteriorized, wrapped in a moist lap. Inside uterus w as cleaned with dry lap. All residual membranes were removed. Uterine incision was then closed usi ng #1 Monocryl in 2 layers. A 6 cm distal end of the right tube was ligated 3 times using 0 plain t ies. The ligated portion was cut and sent to pathology. The same procedure was done on contralater al side. The uterus was inserted back inside the abdominal cavity. Irrigation was done. Gutters w ere cleaned. Uterine incision was evaluated carefully. There was no further bleeding from the uter ine incision and the tubal ligation sites were hemostatic as well. The peritoneal cavity was explor ed. There were no surgical instruments or laps left behind. Peritoneum was closed using 2-0 Monocr yl. Rectus muscles reapproximated using 2-0 Monocryl. Rectus fascia was closed using #1 Vicryl. S ubcutaneous tissue was cleaned, irrigated, all bleeders cauterized and the skin closed using Insorb dimas. All counts correct. Dictated By: CANDICE REINA/ESTRELLITA Conf#: [id number] [facility]#: [id number]
[2016-07-24] MEDS: KETOROLAC 30 MG INJ IV PRN ×2 (05:24→15:43)
[2016-07-24] MEDS: IBUPROFEN 600 MG TAB PO SCH ×5 (06:00→23:41)
[2016-07-24 07:50] VITALS: BP 100/68; PULSE 60; RESP 18
--- NOTE | 2016-07-24 08:13 | PN ---
Date/Time of Note Date/Time of Note DATE: 07/24/16 TIME: 08:11 OB Subjective Subjective Subjective denies any problems OB Objective Objective Objective AFebrile, Vss Abd: soft, not distended dressing is dry mild lochia ext: 1+ edema Bilaterally OB Assessment/Plan Other Assessment: POD # 1 s/p c/s and BTL doing well Other plan: current care ambulate CANDICE GUTIERERZ MD Jul 24, 2016 08:13
[2016-07-24] MEDS: SENNA/DOCUSATE NA (8.6MG/50MG) TAB PO SCH ×2 (09:05→20:58)
[2016-07-24 12:00] VITALS: BP 95/58; PULSE 77; RESP 19
[2016-07-24 13:30] LABS: BASOPHILS % 0.1 % (0.0-2.0); EOSINOPHILS # 0.1 10^3/ul (0.0-0.5); EOSINOPHILS % 1.6 % (0.0-7.0); HEMATOCRIT 36.3 % (37.0-47.0); HEMOGLOBIN 12.5 g/dl (12.0-16.0); LYMPHOCYTES # 1.2 10^3/ul (0.8-2.9); LYMPHOCYTES % 13.4 % (15.0-51.0); MEAN CORPUSCULAR HEMOGLOBIN 31.7 pg (29.0-33.0); MEAN CORPUSCULAR HGB CONC 34.4 g/dl (32.0-37.0); MEAN CORPUSCULAR VOLUME 92.3 fl (82.0-101.0); MEAN PLATELET VOLUME 7.9 fl (7.4-10.4); MONOCYTE # 0.4 10^3/ul (0.3-0.9); MONOCYTES % 4.2 % (0.0-11.0); NEUTROPHIL # 7.5 10^3/ul (1.6-7.5); NEUTROPHILS % 80.7 % (39.0-77.0); PLATELET COUNT 140 10^3/UL (140-440); RED BLOOD COUNT 3.93 10^6/ul (4.20-5.40); RED CELL DISTRIBUTION WIDTH 14.3 % (11.5-14.5); UNCORRECTED WBC 9.3 10^3/ul (4.8-10.8); WHITE BLOOD COUNT 9.3 10^3/ul (4.8-10.8)
[2016-07-24 13:37] LABS: CONDITION 1
[2016-07-24 16:00] VITALS: BP 108/59; PULSE 60; RESP 20
[2016-07-24 20:15] VITALS: BP 113/66; PULSE 86; RESP 18
[2016-07-25 04:04] VITALS: BP 93/64; PULSE 86; RESP 18
[2016-07-25] MEDS: LACTATED RINGER'S 1,000 ML IV SCH ×3 (04:37→20:37)
[2016-07-25] MEDS: IBUPROFEN 600 MG TAB PO SCH ×4 (05:44→23:59)
[2016-07-25 08:15] VITALS: BP 103/71; PULSE 85; RESP 20
[2016-07-25] MEDS: SENNA/DOCUSATE NA (8.6MG/50MG) TAB PO SCH ×2 (08:53→21:59)
--- NOTE | 2016-07-25 13:55 | DS ---
Date/Time of Note Date/Time of Note DATE: 07/25/16 TIME: 13:53 Obstetrical Discharge Record Final Diagnosis Final Diagnosis: Term delivered Vaginal Delivery Obstetrical Delivery: Bilateral Tubal Ligation Section Section: Primary Primary Indication Twins, with Twin A Breech presentation Complications Multiple Gestation Augmentation: No Induction: No Rupture of Membranes: No Condition on Discharge Physical Assessment Voiding: Yes Bowel Movement: Yes Breast: Soft, non-tender, Filling Fundus: Firm Abdomen and Incision: soft, appropriate tender Episiotomy: NA Calf Tenderness: No Patient Condition: Good CANDICE GUTIERREZ MD Jul 25, 2016 13:55
[2016-07-25 16:00] VITALS: BP 113/78; PULSE 90; RESP 20
[2016-07-25 20:00] VITALS: BP 127/78; PULSE 92; RESP 20
[2016-07-26] MEDS: LACTATED RINGER'S 1,000 ML IV SCH (04:37)
[2016-07-26 05:04] VITALS: BP 111/70; PULSE 79; RESP 19
[2016-07-26] MEDS: IBUPROFEN 600 MG TAB PO SCH ×2 (05:21→12:06)
[2016-07-26 07:10] VITALS: BP 108/69; PULSE 72; RESP 18
--- NOTE | 2016-07-26 07:58 | DS ---
Date/Time of Note Date/Time of Note DATE: 07/26/16 TIME: 07:57 Obstetrical Discharge Record Final Diagnosis Final Diagnosis: Term delivered Vaginal Delivery Obstetrical Delivery: Bilateral Tubal Ligation Section Section: Repeat Complications Multiple Gestation Augmentation: No Induction: No Rupture of Membranes: No Condition on Discharge Physical Assessment Voiding: Yes Bowel Movement: Yes Breast: Soft, non-tender, Filling Fundus: Firm Abdomen and Incision: soft and appropriate tender./ Incision is clean and intact Calf Tenderness: No Patient Condition: Good CANDICE GUTIERREZ MD Jul 26, 2016 07:58
[2016-07-26] MEDS ORDERED: DIPHTH/TET/ACEL PERTUSS (ADULT) 0.5 ML VIAL IM* ONE (09:00)
[2016-07-26] MEDS ORDERED: MEASLES,MUMPS,RUBELLA VACCINE INJ SC* ONE (09:00)
[2016-07-26] MEDS: SENNA/DOCUSATE NA (8.6MG/50MG) TAB PO SCH (09:43)
== END 2016-07-26 15:45 | disposition home or self-care (01) | DRG 765 ==
LOC: L-D 16:49 → PP1 07-24 00:51
PROVIDERS: ADMIT Specialist; ATTEND Specialist
PROC: 0UB70ZZ Excision of Bilateral Fallopian Tubes, Open Approach (ICD-10-PCS; 2016-07-23)
PROC: 10D00Z1 Extraction of Products of Conception, Low, Open Approach (ICD-10-PCS; principal; 2016-07-23 18:30)
DX: O32.1XX1 Maternal care for breech presentation, fetus 1 (principal); O30.033 Twin pregnancy, monochorionic/diamniotic, third trimester; E66.01 Morbid (severe) obesity due to excess calories; O32.2XX2 Maternal care for transverse and oblique lie, fetus 2; O99.214 Obesity complicating childbirth; Z68.37 Body mass index [BMI] 37.0-37.9, adult; Z30.2 Encounter for sterilization; Z3A.37 37 weeks gestation of pregnancy; Z37.2 Twins, both liveborn
CPT/HCPCS: 85025; 85610; 85730; 86592; 86850; 86870; 86900; 86901; 87340; 88302; 88307; 90715; 94760; 99464; J0690; J1885; J2274; J2370; J2405; J2590; J7120